=== PATIENT | female | born 1995 | race Caucasian/White ===

== ENCOUNTER 2022-03-03 14:23 | Emergency (ER) | payer MEDICAID, OTHER ==
[~2022-03-03] VITALS: Ht 162.6 cm; Wt 90.3 kg
[2022-03-03 14:31] VITALS: BP 121/70
--- NOTE | 2022-03-03 14:41 | NUR ---
26 Y/O F BIB SELF FOR RLQ PAIN -V/D WITH ON AND OFF NAUSEA. AOX4, ABLE TO MAKE NEEDS KNOWN. NEGATIVE REBOUND TENDERNESS. LAST BM 03/03. +BS X 4. PMHX: DENIES ALLERGIES: DENIES
[2022-03-03] MEDS: KETOROLAC 60 MG/2 ML VIAL IM ONE (15:12)
[2022-03-03 15:24] LABS: BASOPHILS % (AUTO) 0.5 % (0.0-2.0); EOSINOPHILS # (AUTO) 0.1 K/uL (0-0.4); EOSINOPHILS % (AUTO) 0.6 % (0.0-4.0); HEMATOCRIT 38.7 % (36-48); HEMOGLOBIN 13.2 g/dL (12.0-16.0); LYMPHOCYTES # (AUTO) 1.5 K/uL (2.5-16.5); LYMPHOCYTES % (AUTO) 15.9 % (20.5-51.1); MEAN CORPUSCULAR HEMOGLOBIN 29 pg (27-31); MEAN CORPUSCULAR HGB CONC 34 g/dL (33-37); MONOCYTES # (AUTO) 0.5 K/uL (0.8-1.0); NEUTROPHILS # (AUTO) 7.5 K/uL (1.8-7.7); PLATELET COUNT (AUTO) 305 K/uL (140-450); RED BLOOD CELL COUNT(AUTO) 4.56 MIL/uL (4.20-5.40); RED CELL DISTRIBUTION WIDTH 13.9 % (11.6-13.7); WHITE BLOOD COUNT (AUTO) 9.6 K/uL (4.8-10.8)
[2022-03-03 15:24] LABS: APPEARANCE,URINE CLEAR (CLEAR); BILIRUBIN,URINE NEGATIVE (NEGATIVE); BLOOD, URINE TRACE-I (NEGATIVE); COLOR,URINE YELLOW (YELLOW); LEUKOCYTE ESTERASE ,URINE NEGATIVE (NEGATIVE); NITRITE, URINE NEGATIVE (NEGATIVE); PH,URINE 5.5 (5.0-9.0); UGLUCOSE NEGATIVE (NEGATIVE)
[2022-03-03 15:39] LABS: ALBUMIN 3.8 g/dL (3.4-5.0); CARBON DIOXIDE 27.9 mmol/L (21-32); CREATININE 0.8 mg/dL (0.6-1.3); POTASSIUM 3.9 mmol/L (3.5-5.1); TOTAL BILIRUBIN 0.4 mg/dL (0.0-1.0)
[2022-03-03 15:43] LABS: RBC,URINE 0-5 /HPF (0-5); WBC,URINE 0-5 /HPF (0-5)
[2022-03-03] MEDS ORDERED: ACET-8386 PO (16:18)
[2022-03-03] MEDS ORDERED: IBUP-2213 PO (16:18)
[2022-03-03] MEDS ORDERED: ONDA8TAB87 PO (16:18)
--- NOTE | 2022-03-03 16:22 | NUR ---
Patient appears to be resting comfortably in bed. Vital Signs within normal limits. Respirations even and unlabored.
[2022-03-03 16:37] VITALS: BP 118/69
--- NOTE | 2022-03-03 16:37 | NUR ---
Patient discharged with v/s stable. Written and verbal after care instructions given and explained with teachback. Patient alert, oriented and verbalized understanding of instructions. Ambulatory with steady gait. All questions addressed prior to discharge. ID band removed. Patient advised to follow up with PMD. Rx of ondansetron hcl/ibuprofen/hydrocodone/acetaminophen given. Patient educated on indication of medication including possible reaction and side effects. Opportunity to ask questions provided and answered.
== END 2022-03-03 16:37 | disposition home or self-care (01) ==
LOC: MED 14:23
DX: R10.31 Right lower quadrant pain (principal); R11.0 Nausea
CPT/HCPCS: 36415; 80053; 81001; 81025; 83690; 85025; 96372; 99283; J1885

== ENCOUNTER 2023-01-02 18:51 | Emergency (ER) | payer MEDICAID ==
[~2023-01-02] VITALS: Ht 162.6 cm; Wt 81.2 kg
[~2023-01-02 18:51] MED LIST: ACET-8905 PO; IBUP-2213 PO; ONDA8TAB87 PO
[2023-01-02 19:04] VITALS: BP 129/79
--- NOTE | 2023-01-02 19:27 | NUR ---
attempted to collect urine, pt stated she is unable to go at this time, PO fluids given
[2023-01-02 19:55] LABS: APPEARANCE,URINE CLEAR (CLEAR); BILIRUBIN,URINE NEGATIVE (NEGATIVE); BLOOD, URINE NEGATIVE (NEGATIVE); COLOR,URINE YELLOW (YELLOW); LEUKOCYTE ESTERASE ,URINE NEGATIVE (NEGATIVE); NITRITE, URINE NEGATIVE (NEGATIVE); PH,URINE 5.5 (5.0-9.0); UGLUCOSE NEGATIVE (NEGATIVE)
--- NOTE | 2023-01-02 20:50 | NUR ---
PT TO BED #11
--- NOTE | 2023-01-02 21:00 | NUR ---
MD Prieto at bedside examining pt.
--- NOTE | 2023-01-02 21:01 | NUR ---
Pt ambulatory from home with c/o feeling dizzy and having a headache. States the room spins; worsens when she lies down. Mild nausea; denies vomiting or any other associated symptoms. Pt started on new control yesterday; LoLoestrin. PMH: Denies A: NKDA
[2023-01-02] MEDS ORDERED: MECLIZINE 25 MG TAB PO ONE (21:10)
[2023-01-02] MEDS ORDERED: MECL-303 PO (21:52)
--- NOTE | 2023-01-02 22:18 | NUR ---
Patient discharged with v/s stable. Written and verbal after care instructions given and explained. Patient alert, oriented and verbalized understanding of instructions. All questions addressed prior to discharge. ID band removed. Patient advised to follow up with PMD. Rx of Meclizine sent to preferred pharmacy. Patient educated on indication of medication including possible reaction and side effects. Opportunity to ask questions provided and answered.
[2023-01-02 22:19] VITALS: BP 106/57
== END 2023-01-02 22:18 | disposition home or self-care (01) ==
LOC: MED 18:51
DX: R42 Dizziness and giddiness (principal)
CPT/HCPCS: 81003; 81025; 99283; J8597